=== PATIENT | female | born 1945 | race Caucasian/White ===

== ENCOUNTER 2017-08-21 16:30 | Emergency (ER) | payer MEDICARE ==
[~2017-08-21] VITALS: Ht 175.3 cm; Wt 79.7 kg
[2017-08-21 16:54] VITALS: BP 147/79; PULSE 89; RESP 16; TEMP 98.3; O2SAT 96
[2017-08-21] MEDS ORDERED: OXYB10TA PO (17:18)
--- NOTE | 2017-08-21 17:53 | RADRPT ---
EXAM DATE/TIME: 08/21/2017 17:31 [facility] COMPARISON: No previous studies available for comparison. INDICATIONS : Cough, fever, chest pain with cough for 6 weeks MEDICAL HISTORY : None. SURGICAL HISTORY : None. ENCOUNTER: Initial ACUITY: 1 month PAIN SCORE: 6/10 LOCATION: Bilateral chest FINDINGS: There is a partially circumscribed density overlying the left mid thorax of uncertain etiology. No pr ior study for comparison. This measures at least 2 cm in transverse diameter. Right lung is clear. No effusion. Old left rib fracture. CONCLUSION: 1. Density overlying mid left hemithorax measuring around 2 cm in transverse diameter. Further evalua tion with chest CT recommended to exclude lung mass. Timi Heller MD on August 21, 2017 at 17:49 Board Certified Radiologist. This report was verified electronically.
--- NOTE | 2017-08-21 18:14 | PD ---
HPI Chief Complaint: Cold / Flu Symptoms Time Seen by Provider: 17:16 Travel History International Travel<30 days: No Contact w/Intl Traveler<30days: No Traveled to known affect area: No History of Present Illness HPI This is a 72-year-old female here for evaluation of a cough for approximately 6 weeks. She recently moved here from [place] and believed her cough was due to allergy symptoms. She was started on a Z-Eliel and Tessalon Perles week ago with little improvement. She reports at that time she had a fever and was treated for bronchitis. She denies fever or chills currently. She denies chest pain or shortness of breath. She reports the cough occasionally productive. Symptom severity is moderate. No aggravating or alleviating factors. No history CHF, GERD, not taking ALBER inhibitor's. PFSH Past Medical History Medical History: Denies Significant Hx Diminished Hearing: No Genitourinary: Yes (overactive bladder) Tetanus Vaccination: Unknown Influenza Vaccination: No ?: Not Past Surgical History Joint Replacement: Yes (Right Hip) Social History Alcohol Use: No Tobacco Use: No Substance Use: No Allergies-Medications (Allergen,Severity, Reaction): Coded Allergies: Sulfa (Sulfonamide Antibiotics) (Verified Allergy, Mild, skin rash, ) Reported Meds & Prescriptions Reported Meds & Active Scripts Active Reported Oxybutynin ER 24 HR (Oxybutynin Chloride) 10 Mg Tab 10 Mg PO DAILY Review of Systems Except as stated in HPI: all other systems reviewed are Neg General / Constitutional: No: Fever Eyes: No: Visual changes HENT: No: Headaches Cardiovascular: No: Chest Pain or Discomfort Respiratory: Positive: Cough Gastrointestinal: No: Abdominal Pain Genitourinary: No: Dysuria Physical Exam Narrative GENERAL: Alert well-appearing 72-year-old female SKIN: Warm and dry. HEAD: Normocephalic. EYES: No scleral icterus. No injection or drainage. NECK: Supple, CARDIOVASCULAR: Regular rate and rhythm without murmurs, gallops, or rubs. RESPIRATORY: Breath sounds equal bilaterally. No accessory muscle use. GASTROINTESTINAL: Abdomen soft, non-tender, nondistended. MUSCULOSKELETAL: No cyanosis, or edema. BACK: Nontender without obvious deformity. No CVA tenderness. Data Data Last Documented VS Vital Signs Date Time Temp Pulse Resp B/P (MAP) Pulse Ox O2 Delivery O2 Flow Rate FiO2 08/21/17 16:54 98.3 89 16 147/79 (101) 96 Orders Orders Chest, Single Ap (08/21/17 ) Ct Thorax/ Chest Wo Iv Contras (08/21/17 18:04) MDM Medical Decision Making Medical Screen Exam Complete: Yes Emergency Medical Condition: Yes Differential Diagnosis Bronchitis, pneumonia, URI Narrative Course 72-year-old male here with cough. She is well-appearing. Vital signs are stable. Chest x-ray found 2 cm density in the left lung. CT of the chest revealed bilateral lung scarring and calcified area in the left lung consistent with asbestosis. All findings were discussed with patient. She was given a printout of her report. She is to follow up with primary care doctor regarding her findings. She'll be treated for bronchitis and reactive airway. She is stable and ready for discharge Diagnosis Primary Impression: Bronchitis Referrals: Primary Care Physician Additional Instructions: Medications as directed. Follow-up with a primary doctor and discuss findings found on CT today. Return to the ER if he have new or worsening symptoms Scripts Albuterol 18 GM Inh (Ventolin Hfa 18 GM Inh) 90 Mcg/Act Aer 2 PUFF INH Q4-6H Y for SHORTNESS OF BREATH, #1 INHALER 0 Refills Prov: Mylene Churchill 08/21/17 Prednisone (Prednisone) 20 Mg Tab 40 MG PO DAILY, #10 TAB 0 Refills Take 40 mg (2 tablets) daily for 5 days Prov: Mylene Churchill 08/21/17 Levofloxacin (Levaquin) 500 Mg Tablet 500 MG PO DAILY for Infection for 7 Days, #7 TAB 0 Refills Prov: Mylene Churchill 08/21/17 Disposition: 01 DISCHARGE HOME Condition: Stable Mylene Churchill Aug 21, 2017 18:14
--- NOTE | 2017-08-21 18:59 | RADRPT ---
EXAM DATE/TIME: 08/21/2017 18:44 [facility] COMPARISON: No previous studies available for comparison. INDICATIONS : Dry cough. Abnormal chest xray. RADIATION DOSE: 7.39 CTDIvol (mGy) MEDICAL HISTORY : None SURGICAL HISTORY : Right hip replacement. ENCOUNTER: Initial ACUITY: 1 day PAIN SCALE: 0/10 LOCATION: chest TECHNIQUE: Volumetric scanning of the chest was performed. Using automated exposure control and adjustment of t he mA and/or kV according to patient size, radiation dose was kept as low as reasonably achievable to obtain optimal diagnostic quality images. DICOM format image data is available electronically for r eview and comparison. Follow-up recommendations for detected pulmonary nodules are based at a minimum on nodule size and pa tient risk factors according to Fleischner Society Guidelines. FINDINGS: The density overlying the left chest on plain film correlates with a calcified pleural plaque. There is some basilar pulmonary fibrosis with subpleural short lines and some parenchymal bands. No p leural effusion. Trace pericardial fluid. No lung consolidation. No acute findings in the upper abdomen. CONCLUSION: 1. 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 Probable mild asbestosis of the lung bases as well. 2. Trace pericardial fluid. Timi Heller MD on August 21, 2017 at 18:54 Board Certified Radiologist. This report was verified electronically.
[2017-08-21] MEDS ORDERED: VENTAER INH (19:19)
[2017-08-21] MEDS ORDERED: PRED20 PO (19:19)
[2017-08-21] MEDS ORDERED: LEVA500T33 PO (19:19)
== END 2017-08-21 19:29 | disposition home or self-care (01) ==
LOC: PHEFT 16:30
DX: J40 Bronchitis, not specified as acute or chronic (principal); Z88.2 Allergy status to sulfonamides
CPT/HCPCS: 71045; 71250; 99284

== ENCOUNTER → 2017-11-03 | Outpatient (CLI) | payer MEDICARE ==
[~2017-11-03] MED LIST: LEVA500T33 PO; OXYB10TA PO; PRED20 PO; VENTAER INH
--- NOTE | 2017-11-09 09:19 | RSPPFT ---
DATE OF PROCEDURE: 11/03/17 COMMENTS: Spirometry with FVC of 2.8, FEV1 of 2.0, FEV1/FVC ratio 71%. TLC is 96% of predicted. Diffusion capacity is 76% and normal when corrected for alveolar volume. IMPRESSION: 1. Moderately severe airways obstruction. 2. Non-significant response to inhaled bronchodilator. 3. No evidence of airways restriction. 4. Reduced diffusion capacity but normal when corrected for alveolar volume.
== END ==
LOC: PHRSP 08:18
PROVIDERS: ATTEND Internal Medicine Sleep Medicine
DX: R06.89 Other abnormalities of breathing (principal)
CPT/HCPCS: 94060; 94726; 94729